=== PATIENT | male | born 1990 | race Hispanic/Latino ===

== ENCOUNTER 2017-10-15 05:44 | Emergency (ER) | payer BC ==
[~2017-10-15] VITALS: Ht 175.3 cm; Wt 115.7 kg
[2017-10-15] MEDS ORDERED: ALBUTEROL/IPRATROPIUM 3 ML NEB NEB ONE (06:00)
[2017-10-15] MEDS ORDERED: SINGULAIR10 MG PO (07:06)
[2017-10-15] MEDS ORDERED: XYZAL5 MG PO (07:06)
[2017-10-15] MEDS ORDERED: PROAIR HFA INH8.5 GM INH (07:06)
[2017-10-15] MEDS ORDERED: PREDNISONE20 MG PO (07:06)
== END 2017-10-15 07:10 | disposition home or self-care (01) ==
LOC: FSED 05:44
DX: R06.2 Wheezing (principal); R05 Cough; J45.31 Mild persistent asthma with (acute) exacerbation
CPT/HCPCS: 99283

== ENCOUNTER 2017-10-25 19:30 | Emergency (ER) | payer BC ==
[~2017-10-25] VITALS: Ht 175.3 cm; Wt 115.7 kg
[~2017-10-25 19:30] MED LIST: PREDNISONE20 MG PO; PROAIR HFA INH8.5 GM INH; SINGULAIR10 MG PO; XYZAL5 MG PO
[2017-10-25 20:47] LABS: BASOPHILS # (AUTO) 0.1 (0.0-0.1); BASOPHILS % 0.4 % (0.0-1.0); EOSINOPHILS # (AUTO) 0.3 (0.0-0.4); EOSINOPHILS % 2.3 % (0.0-6.0); HEMATOCRIT 44.3 % (38.2-49.6); LYMPHOCYTES # (AUTO) 3.8 (1.0-3.2); LYMPHOCYTES % 30.3 % (18.0-39.1); MEAN CORPUSCULAR HEMOGLOBIN 28.8 pg (28-32); MEAN CORPUSCULAR HGB CONC 33.9 g/dL (31-35); MEAN CORPUSCULAR VOLUME 85.2 fL (81-99); MONOCYTES # (AUTO) 0.8 (0.2-0.8); MONOCYTES % 6.1 % (4.4-11.3); NEUTROPHILS # (AUTO) 7.5 (2.1-6.9); NEUTROPHILS % 60.4 % (38.7-80.0); PLATELET COUNT 355 x10e3/uL (140-360); RED CELL DISTRIBUTION WIDTH 13.2 % (11.7-14.4)
[2017-10-25 20:51] LABS: CLARITY,URINE CLEAR (CLEAR); COLOR,URINE YELLOW (YELLOW); LEUKOCYTE ESTERASE ,URINE NEGATIVE (NEGATIVE); NITRITE,URINE NEGATIVE (NEGATIVE)
[2017-10-25 20:52] LABS: BILIRUBIN,URINE NEGATIVE (NEGATIVE); KETONES,URINE NEGATIVE (NEGATIVE); PROTEIN,URINE DIPSTICK NEGATIVE (NEGATIVE); URINE UROBILINOGEN 0.2 mg/dL (0.2 - 1)
[2017-10-25 20:58] LABS: INR 1.1; PROTHROMBIN TIME 13.4 seconds (11.9-14.5)
[2017-10-25 20:59] LABS: PARTIAL THROMBOPLASTIN TIME 36.9 seconds (23.8-35.5)
[2017-10-25 21:03] LABS: BACTERIA,URINE RARE /HPF; EPITHELIAL CELLS,URINE FEW /LPF
[2017-10-25 21:07] LABS: ALANINE AMINOTRANSFERASE 24 IU/L (0-55); ALBUMIN 4.1 g/dL (3.5-5.0); ALBUMIN/GLOBULIN RATIO 1.1 (0.8-2.0); ALKALINE PHOSPHATASE 113 IU/L (40-150); AMYLASE 66 U/L (25-125); ANION GAP 16.4 mmol/L (8-16); BLOOD UREA NITROGEN 13 mg/dL (7-26); BUN/CREATININE RATIO 15 (6-25); CALCIUM 9.4 mg/dL (8.4-10.2); CARBON DIOXIDE 23 mmol/L (22-29); CHLORIDE 104 mmol/L (98-107); CREATINE KINASE 96 IU/L (30-200); CREATININE, SERUM 0.88 mg/dL (0.72-1.25); EST GLOMERULAR FILTRATION RATE > 60 ML/MIN (60-); GLUCOSE 93 mg/dL (74-118); LIPASE 33 U/L (8-78); POTASSIUM 3.4 mmol/L (3.5-5.1); SODIUM 140 mmol/L (136-145)
[2017-10-25] MEDS ORDERED: PANTOPRAZOLE 40 MG 10ML VIAL IV STA (21:32)
[2017-10-25] MEDS ORDERED: SODIUM CHLORIDE 0.9% 1000ML 1,000 ML IV STA (21:32)
[2017-10-25] MEDS ORDERED: ONDANSETRON HCL INJ 2 MG/ML VIAL IV STA (21:32)
[2017-10-25] MEDS ORDERED: ONDANSETRON HCL INJ 2 MG/ML VIAL ONE (21:35)
[2017-10-25] MEDS ORDERED: PANTOPRAZOLE 40 MG 10ML VIAL ONE (21:35)
[2017-10-25] MEDS ORDERED: SODIUM CHLORIDE 0.9% 1000ML 1,000 ML ONE (21:35)
[2017-10-25] MEDS ORDERED: MORPHINE SULFATE 2 MG/ML SYR IV STA (23:22)
--- NOTE | 2017-10-25 23:30 | Diagnostic Imaging Report ---
EXAM: Right Upper Quadrant Ultrasound INDICATION: \S\ABD PAIN COMPARISON: None. TECHNIQUE: Transverse and longitudinal images of the right upper abdomen were obtained. FINDINGS: Liver: Size: 16.6 cm in the right midclavicular line, mildly enlarged Appearance: Increased echogenicity, smooth contour Mass: No focal masses Gallbladder: Limited evaluation of the gallbladder due to partial contraction secondary to nonfasting state. Stones/Sludge: None Wall: 0.2 cm Appearance: No wall thickening, pericholecystic fluid or hydrops. Sonographic Presley's Sign: Negative Bile Ducts: Intrahepatic Ducts: No dilatation Extrahepatic Ducts: Common bile duct measures 0.3 cm, no dilatation Pancreas: Obscured by overlying bowel gas Kidneys: Length: Right 11.4 cm Echogenicity: Normal Collecting System: No hydronephrosis Stone: None Cyst/Mass: None Vessels: Aorta: Visualized portions are normal Inferior Vena Cava: Visualized portions are normal Main Portal Vein: 0.9 cm, normal size with hepatopetal flow. Free Fluid: No ascites or pleural effusion IMPRESSION: 1. Mild hepatomegaly with diffuse fatty infiltration. No focal lesions. 2. Limited evaluation of the gallbladder due to contraction, as the patient did not fast. No stones or sludge are visualized. . Signed by: Dr. Jorge Luis Paris M.D. on 10/25/2017 11:27 PM
[2017-10-26] MEDS ORDERED: LIDOCAINE VISC 2% SOLN 15 ML UDC PO ONE (00:30)
[2017-10-26] MEDS ORDERED: MAGNESIUM/ALUMINUM/SIMETHICONE 30 ML UDC PO ONE (00:30)
[2017-10-26] MEDS ORDERED: BELLADONNA ALK/PHENOBARBITAL 5 ML UDC PO ONE (00:30)
--- OUTSIDE RECORDS SUMMARY | 2017-12-09 03:18 | XMS REPORT | Continuity of Care Document ---
Author Author [facility] Organization [facility] Address [address] [place] [address] Phone Unavailable Care Team Providers Care Dag Coater Name Role Phone NO, PCP PCP Unavailable Insurance Providers Guarantor Tamica Calero Address [address] [place] [address] Email [email or web address] Payer [facility] Policy Number [id number] Subscriber's Name Tamica Calero Relationship 18 Self / Same As Patient Group Number [id number] Advance Directives Directive Response Recorded Date/Time Does the patient have an advance directive? No 10/15/17 6:26am If yes, is advance directive on file with [facility]? No 10/15/17 6:26am If not on file with [facility] will patient provide a copy? No 10/15/17 6:26am Do you have a Directive to Physician? No 10/15/17 6:26am Do you have a Medical Power of Junior Data Analyst? No 10/15/17 6:26am Do you have an out of hospital Do Not Resuscitate Order? No 10/15/17 6:26am Do you have any special needs we should be aware of? No 10/15/17 6:26am Do you have a support person here with you today? Yes 10/15/17 6:26am Did patient receive Notice of Privacy Practices? Yes 10/15/17 6:26am Did patient receive patient rights and responsibilities? Yes 10/15/17 6:26am Problems No problem information available. Medications Current Home Medications Medication Dose Units Route Directions Days Qty Instructions Start Date Albuterol Sulfate (Proair Hfa Inhaler*) 8.5 Gm Inh 2 Sprays Inhalation Every 4 Hours 1 Inhaler 2 puffs by mouth Q4H scheduled for 3 days, then may use Q4-6H PRN for wheezing 10/15/17 Levocetirizine Dihydrochloride (Xyzal) 5 Mg Tablet 5 Mg Oral Daily 30 Tab 10/15/17 Montelukast Sodium (Singulair) 10 Mg Tablet 1 Tab Oral Daily 30 Tab 10/15/17 Prednisone 20 Mg Tab 60 Mg Oral Daily 3 Days 9 Tab 10/15/17 Social History Smoking Status Start Date Stop Date Never Smoker Hospital Discharge Instructions No hospital discharge instruction information available. Plan of Care Discharge Date 10/15/17 7:10am Disposition HOME, SELF-CARE Condition at Discharge Stable Instructions/Education Provided Asthma - Adult Prescriptions See Medication Section Referrals [facility] - appt on Wed Functional Status No functional status information available. Allergies, Adverse Reactions, Alerts No known allergies. Immunizations No immunization information available. Vital Signs Acute Vital Signs Vital Response Date/Time Pulse Pulse Rate (adult) 84 bpm (60 - 90) 10/15/2017 6:08am Respiratory Rate 16 bpm (12 - 24) 10/15/2017 6:08am Height 5 ft 9 in 10/15/2017 5:48am Weight 255 lb 10/15/2017 5:48am Body Mass Index 37.7 kg/m^2 10/15/2017 5:48am Results No relevant diagnostic test, laboratory data and/or discharge summary information available. Procedures No procedure information available. Encounters Encounter Location Arrival/Admit Date Discharge/Depart Date Attending Provider Departed Emergency Room [facility] 10/15/17 5:44am 7:10am EMILY BURT MD
== END 2017-10-26 01:00 | disposition home or self-care (01) ==
LOC: ER 19:30
DX: R10.13 Epigastric pain (principal); R11.0 Nausea; R19.7 Diarrhea, unspecified; K29.00 Acute gastritis without bleeding
CPT/HCPCS: 36415; 76705; 80053; 81001; 82150; 82550; 82553; 83690; 84484; 85025; 85610; 85730; 93005; 99284; J2270; J2405; J7030

== ENCOUNTER 2018-08-05 21:50 | Emergency (ER) | payer SELFPAY ==
[~2018-08-05] VITALS: Ht 175.3 cm; Wt 117.9 kg
--- OUTSIDE RECORDS SUMMARY | 2018-08-05 21:52 | XMS REPORT ---
Author Author [facility] Address Unknown Phone Unavailable Care Team Providers Care Balloon Maker Name Role Phone Jim WYATT Unavailable Unavailable Problems This patient has no known problems. Allergies, Adverse Reactions, Alerts This patient has no known allergies or adverse reactions. Medications This patient has no known medications. Results Test Description Test Time Test Comments Text Results Atomic Results Result Comments US GALLBLADDER 2017-10-25 23:24:00 [place] [address] Patient Name: TAMICA DIAZ MR #: [id number] : 1990 Age/Sex: 27/M Req #: [id number] Adm Physician: Ordered by: VIC WYATT MD Report #: [id number] Location: ER Room/Bed: Procedure: [id number] US/US GALLBLADDER Exam Date: Exam Time: REPORT STATUS: Signed EXAM: Right Upper Quadrant Ultrasound INDICATION: COMPARISON: None. TECHNIQUE: Transverse and longitudinal images of the right upper abdomen were obtained. FINDINGS: Liver: Size: 16.6 cm in the right midclavicular line, mildly enlarged Appearance: Increased echogenicity, smooth contour Mass: No focal masses Gallbladder: Limited evaluation of the gallbladder due to partial contraction secondary to nonfasting state. Stones/Sludge: None Wall: 0.2 cm Appearance: No wall thickening, pericholecystic fluid or hydrops. Sonographic Presley's Sign: Negative Bile Ducts: Intrahepatic Ducts: No dilatation Extrahepatic Ducts: Common bile duct measures 0.3 cm, no dilatation Pancreas: Obscured by overlying bowel gas Kidneys: Length: Right 11.4 cm Echogenicity: Normal Collecting System: No hydronephrosis Stone: None Cyst/Mass: None Vessels: Aorta: Visualized portions are normal Inferior Vena Cava: Visualized portions are normal Main Portal Vein: 0.9 cm, normal size with hepatopetal flow. Free Fluid: No ascites or pleural effusion IMPRESSION: 1. Mild hepatomegaly with diffuse fatty infiltration. No focal lesions. 2. Limited evaluation of the gallbladder due to contraction, as the patient did not fast. No stones or sludge are visualized. . Signed by: Dr. Alexandru Paris M.D. on 10/25/2017 11:27 PM Dictated By: ALEXANDRU PARIS MD 27 Transcribed By: MELINA on 10/25/172326 COPY TO: VIC WYATT MD
== END 2018-08-05 22:15 | disposition left against medical advice (07) ==
LOC: FSED 21:50
DX: M79.674 Pain in right toe(s) (principal)